=== PATIENT | male | born 1990 | race Caucasian/White ===

== ENCOUNTER 2016-06-13 07:48 | Emergency (ER) | payer OTHER ==
[2016-06-13] MEDS ORDERED: Ketorolac 30 MG/ML SDV IVPUSH ONE (08:03)
--- NOTE | 2016-06-13 08:03 | EDM.PDOC ---
ED HPI GENERAL MEDICAL PROBLEM - General Chief Complaint: Back Pain or Injury Stated Complaint: BACK INJURY Time Seen by Provider: 06/13/16 07:54 - History of Present Illness INITIAL COMMENTS - FREE TEXT/NARRATIVE: HISTORY AND PHYSICAL: History of present illness: Patient is 26-year-old male just returned to low back pain he states he had a fall recently this is from standing position he slipped and somewhat "face plant " he has been able ambulate if this is Progress and worsen he does drive a bobcat which of course aggravates this pain he denies numbness weakness incontinence or retention of bowel or bladder. Patient presented via paramedics and was given fentanyl 50 mcg in room Review of systems: As per history of present illness and below otherwise all systems reviewed and negative. Past medical history: As per history of present illness and as reviewed below otherwise noncontributory. Surgical history: As per history of present illness and as reviewed below otherwise noncontributory. Social history: No reported history of drug or alcohol abuse. Family history: As per history of present illness and as reviewed below otherwise noncontributory. Physical exam: HEENT: Atraumatic, normocephalic, pupils reactive, negative for conjunctival pallor or scleral icterus, mucous membranes moist, throat clear, neck supple, nontender, trachea midline. Lungs: Clear to auscultation, breath sounds equal bilaterally, chest nontender. Heart: S1S2, regular, negative for clicks, rubs, or JVD. Abdomen: Soft, nondistended, nontender. Negative for masses or hepatosplenomegaly. Negative for costovertebral tenderness. Pelvis: Stable nontender. Genitourinary: Deferred. Rectal: Deferred. Extremities: Atraumatic, negative for cords or calf pain. Neurovascular unremarkable. Neuro: Awake, alert, oriented. Cranial nerves II through XII unremarkable. Cerebellum unremarkable. Motor and sensory unremarkable throughout. Exam nonfocal. Back: Patient has paravertebral tenderness of the lumbar spine no vertebral body or point tenderness motor and sensory are unremarkable deep tendon reflexes are normal Diagnostics: CT lumbar spine Therapeutics: Toradol 30 mg IV Impression: #1 acute low back #2 observation status post Definitive disposition and diagnosis as appropriate pending reevaluation and review of above. - Related Data Allergies Allergy/AdvReac Type Severity Reaction Status Date / Time No Known Allergies Allergy Verified 06/13/16 08:11 Home Meds: Home Meds . [No Known Home Meds] 06/13/16 [History] ED ROS GENERAL - Review of Systems Review Of Systems: ROS reveals no pertinent complaints other than HPI. ED EXAM, GENERAL - Physical Exam Exam: See Below (See dictation) Course - Vital Signs Last Recorded V/S: Last Vital Signs Temp 36.9 C 06/13/16 08:11 Pulse 72 06/13/16 08:42 Resp 16 06/13/16 08:42 BP 128/91 H 06/13/16 08:42 Pulse Ox 97 06/13/16 08:42 - Orders/Labs/Meds Meds: Medications Discontinued Medications Generic Name Dose Route Start Last Admin Trade Name Freq PRN Reason Stop Dose Admin Ketorolac Tromethamine 30 mg 06/13/16 08:03 06/13/16 08:20 Toradol IVPUSH 06/13/16 08:04 30 mg ONETIME ONE Administration Departure - Departure Time of Disposition: 10:03 Disposition: Home, Self-Care 01 Condition: good Clinical Impression: Lumbar strain Forms: ED Department Discharge Additional Instructions: The following information is given to patients seen in the emergency department who are being discharged to home. This information is to outline your options for follow-up care. We provide all patients seen in our emergency department with a follow-up referral. The need for follow-up, as well as the timing and circumstances, are variable depending upon the specifics of your emergency department visit. If you don't have a primary care physician on staff, we will provide you with a referral. We always advise you to contact your personal physician following an emergency department visit to inform them of the circumstance of the visit and for follow-up with them and/or the need for any referrals to a consulting specialist. The emergency department will also refer you to a specialist when appropriate. This referral assures that you have the opportunity for followup care with a specialist. All of these measure are taken in an effort to provide you with optimal care, which includes your followup. Under all circumstances we always encourage you to contact your private physician who remains a resource for coordinating your care. When calling for followup care, please make the office aware that this follow-up is from your recent emergency room visit. If for any reason you are refused follow-up, please contact the [facility] emergency department at and asked to speak to the emergency department charge nurse. LILLIAN [facility] [address] [place] [id number] Hydrocodone Flexeril Motrin as prescribed followup with primary medical doctor and/or clinic above is discussed return as needed as discussed
--- NOTE | 2016-06-13 09:08 | CT ---
EXAMINATION: CT lumbar spine HISTORY: Pain COMPARISON: None TECHNIQUE: Axial CT images obtained through the lumbar spine without contrast. Coronal and sagittal reconstructions obtained. FINDINGS: The lumbar spinal alignment is normal. There is mild wedging of the T11 and T12 vertebral bodies, likely congenital. The remaining vertebral body heights and disc spaces are grossly maintain ed. 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 No significant anterolisthesis. No acute osse ous abnormality demonstrated. Bone mineralization appears normal. The SI joints are symmetric. The v isualized retroperitoneal structures are normal. IMPRESSION: 1. No acute osseous abnormalities identified.
[2016-06-13 10:33] VITALS: BP 122/90
== END 2016-06-13 10:30 | disposition home or self-care (01) ==
LOC: MW.ED 07:48
DX: S39.012A Strain of muscle, fascia and tendon of lower back, initial encounter (principal); W18.09XA Striking against other object with subsequent fall, initial encounter
CPT/HCPCS: 72131; 96374; 99284; J1885